=== PATIENT | female | born 1980 | race African-American/Black ===

== ENCOUNTER → 2018-02-26 | Day surgery (SDC) | payer OTHER ==
--- NOTE | 2018-02-26 11:39 | RAD REPORT ---
EXAM DESCRIPTION: US - Guided FNA Non Breast - 02/26/2018 10:44 am CLINICAL HISTORY: E04.1 COMPARISON: Thyroid Para Parotid Gland dated 02/18/2018 FINDINGS: Preoperative diagnosis: Left thyroid nodule.. Post operative diagnosis: Same. Conscious Sedation: None Fluoroscopy time: None Contrast used: None Estimated blood loss: Minimal Specimens:6 x 25 gauge FNA samples. The left neck was prepped and draped in the usual sterile fashion. 1% lidocaine was infiltrated into the subcutaneous tissues for local anesthesia. Real time ultrasound scanning of the left neck demonst rated 2.5 cm hypoechoic nodule. Under ultrasound guidance, 25 gauge FNA needles, 6 specimens were obt ained of this lesion and sent to pathology for evaluation. There were no complications. IMPRESSION: Successful ultrasound-guided left thyroid nodule FNA procedure.
== END ==
LOC: FNA 09:50
PROVIDERS: ATTEND Internal Medicine
PROC: 0G9K3ZX Drainage of Thyroid Gland, Percutaneous Approach, Diagnostic (ICD-10-PCS; principal; 2018-02-26)
PROC: BG43ZZZ Ultrasonography of Parathyroid Glands (ICD-10-PCS; 2018-02-26)
DX: E04.1 Nontoxic single thyroid nodule (principal)
CPT/HCPCS: 76942; 88108; 88162; 88305